=== PATIENT | female | born 1975 | race Caucasian/White ===

== ENCOUNTER → 2017-04-02 | Outpatient (CLI) | payer OTHER ==
--- NOTE | 2017-04-02 14:08 | RADIOLOGY REPORT PS360 ---
MRI-BRAIN W/WO HISTORY: Headache with dizziness and visual disturbance ACUTE INTRACTABLE HEADACHE ORDERING PHYSICIAN: Bhumika Zhang APRN PATIENT AGE: 41 years COMPARISON: None TECHNIQUE: Standard multiplanar multiecho sequences are performed without and with gadolinium enhancement. FINDINGS: No midline shift, mass effect, intracranial hemorrhage, or hydrocephalus is evident. No enhancing lesions. No evidence of acute infarction or restricted diffusion. No intra or extra-axial mass. There is normal lee-white matter differentiation with no abnormal white matter signal intensity is evident. The cerebellopontine angles, cerebellum, and brainstem are unremarkable. The pituitary, optic chiasm, and corpus callosum are unremarkable. No cerebellar tonsillar ectopia. No mastoid effusion or sinus air-fluid level. IMPRESSION: No acute intracranial findings. Negative MRI of the brain without and with contrast
== END ==
LOC: RAD 10:30
DX: R51 Headache (principal)
CPT/HCPCS: A9576